=== PATIENT | male | born 1960 | race Caucasian/White ===

== ENCOUNTER 2017-04-04 11:47 | Observation (INO) ==
[2017-04-04] MEDS ORDERED: Nitroglycerin 0.4 MG TAB.SUBL SL ONE (12:02)
[2017-04-04] MEDS ORDERED: Ipratropium/Albuterol Neb 3 ML IH ONE (12:04)
--- NOTE | 2017-04-04 12:10 | Emergency Department Note ---
Disposition Clinical Impression: Stable angina, COPD exacerbation, Leukocytosis Disposition: Admitted As Inpatient Condition: Fair Referrals: Joey Dean, PAC [Primary Care Provider] - Forms: ED Satisfaction Letter Time of Disposition: 13:27 Chest Pain HPI - General Chief Complaint: ED Chest Pain Stated Complaint: CP Time Seen by Provider: 04/04/17 11:59 Source: patient Mode of arrival: ambulatory Limitations: no limitations Vital Signs Reviewed: Yes Nursing Notes Reviewed: Yes - History of Present Illness HPI Narrative: Patient presents to the ED with a chief complaint of chest pain. Patient has a history of coronary artery disease requiring one stent placed a year ago. He is on aspirin and Plavix. Also has a history of hypertension and COPD. Continues to smoke. Reports that he was at his urologists office for follow-up on a cystoscopy when he started developing his anginal type symptoms. Reports that he developed a heavy pressure and his chest with a centralized radiating into his right jaw and right shoulder. This is consistent with his previous angina. Denies any shortness of breath above baseline. He said no fever or recent illnesses. No abdominal pain, nausea, vomiting or diarrhea. No pain or swelling in his legs. No history DVT, PE or malignancy. He took a nitroglycerin and the physician's office, which relieved his pain. This pain started coming back now. Severity scale (1-10): 8 - Related Data Home Medications Medication Instructions Recorded Confirmed Atenolol [Tenormin] 50 mg PO DAILY 11/11/14 12/04/15 Diazepam [Valium] 5 mg PO TID 11/11/14 12/04/15 Fluticasone Propionate Nasal 1 spray NS DAILY 11/11/14 12/04/15 [Flonase] Omeprazole [PriLOSEC] 20 mg PO DAILY 11/11/14 12/04/15 OxyCODONE/APAP 5/325 [Percocet 1 tab PO Q6HR PRN 11/11/14 12/04/15 5/325] Quetiapine Fumarate [Seroquel] 100 mg PO HS 11/11/14 12/04/15 Budesonide/Formoterol 160/4.5 2 puff IH BIDR 12/06/15 12/06/15 [Symbicort 160/4.5] EPINEPHrine [Epipen] 0.3 mg IM ONCE PRN 12/06/15 12/06/15 Pregabalin [Lyrica] 75 mg PO BID 12/06/15 12/06/15 hydrOXYzine pamoate [HydrOXYzine 50 mg PO TID 12/06/15 12/06/15 Pamoate] Previous Rx's Medication Instructions Recorded Albuterol Sulfate [Albuterol 2 puff IH Q4HR 2 Days hfa.aer.ad 11/11/14 Inhaler] Simethicone [Gas-X] 80 mg PO TID #30 tab.chew 12/01/14 Bacitracin OINT [Ak-Tracin] 28 gm TP BID 14 Days tube 03/28/15 Pramoxine HCl [Dermarest Eczema] 56.7 gm TP QID PRN 4 Days lotion 03/28/15 Aspirin 81 mg PO DAILY 30 Days tab.chew 12/06/15 Lisinopril [Zestril] 2.5 mg PO DAILY 30 Days tablet 12/06/15 Lisinopril [Zestril] 5 mg PO DAILY #30 tablet 12/06/15 Nitroglycerin 0.4 mg SL Q5MIN #30 tab.subl 12/06/15 Ticagrelor [Brilinta] 90 mg PO BID #60 tablet 12/06/15 Permethrin CRM [Elimite] 1 appl TP ONCE #1 tube 03/22/16 Montelukast [Singulair] 10 mg PO DAILY #30 tablet 05/04/16 predniSONE [Prednisone] 20 mg PO DAILY #22 tablet 05/04/16 Dicyclomine [Bentyl] 20 mg PO QID PRN #30 capsule 06/07/16 Ondansetron ODT [Zofran ODT] 4 mg SL Q6HR PRN #14 tab.rapdis 07/03/16 Sucralfate [Carafate] 1 gm PO QIDAC #60 tablet 07/03/16 predniSONE [PredniSONE] 60 mg PO DAILY #15 tablet 07/03/16 Azithromycin [Azithromycin 6-Tab 250 mg PO PER PKG DI #6 tab 03/30/17 Pack] Benzonatate [Tessalon] 200 mg PO TID PRN #20 capsule 03/30/17 predniSONE [PredniSONE] 20 mg PO BID #10 tablet 03/30/17 Allergies Allergy/AdvReac Type Severity Reaction Status Date / Time carbamazepine [From Tegretol] Allergy Rash Verified 04/04/17 11:56 codeine Allergy Rash Verified 04/04/17 11:56 doxycycline Allergy Rash Verified 04/04/17 11:56 Penicillins [PCN] Allergy Rash Verified 04/04/17 11:56 Sulfa (Sulfonamide Allergy Rash Verified 04/04/17 11:56 Antibiotics) venom-honey bee Allergy Anaphylaxis Verified 04/04/17 11:56 [bee venom (honey bee)] NSAIDS (Non-Steroidal AdvReac See Verified 04/04/17 11:56 Anti-Inflamma Comments All systems ED: reviewed and negative except as stated. Constitutional: Denies: fever Cardiovascular: Reports: chest pain Respiratory: Denies: dyspnea Gastrointestinal: Denies: vomiting Musculoskeletal: Denies: back pain Chest Pain PMH - Past Medical History Medical history: Reports: asthma, COPD, hyperlipidemia, hypertension, myocardial infarction, other Surgical history: Reports: no surgical history, other Psychiatric history: Reports: anxiety, bipolar, schizophrenia, other - Social History Smoking Status: Current every day smoker Alcohol use: Reports: none Drug use: Reports: none Physical Exam - General Limitations: no limitations General appearance: alert, in no apparent distress - Head Head exam: atraumatic, normocephalic, normal inspection - Eye Eye exam: Present: normal appearance, PERRL, EOMI - ENT ENT exam: normal exam, normal oropharynx, mucous membranes moist - Neck Neck exam: Present: normal inspection, full ROM, trachea midline - Chest Chest inspection: Present: normal inspection, symmetric chest wall rise - Respiratory Respiratory exam: Present: normal lung sounds bilaterally - Cardiovascular Cardiovascular exam: Present: regular rate, normal rhythm, normal heart sounds - Abdominal Exam Abdominal exam: Present: soft, Non-Tender. Absent: tenderness, distention, guarding, rebound, rigidity - Extremities Exam Extremities exam: Present: normal inspection, full ROM. Absent: tenderness, pedal edema - Neurological Exam Neurological exam: Present: alert, oriented X3 - Psychiatric Psychiatric exam: Present: normal affect, normal mood - Skin Skin exam: Present: warm, dry, intact, normal color Course Course Narrative: Patient presenting with chest pain consistent with his previous angina. EKG looks okay, but he did get better with nitroglycerin. Cardiac workup initiated. More nitroglycerin. We will repeat EKG if his symptoms get worse. Further disposition pending, but will likely recommend admission - Reevaluation(s) Reevaluation #1: Patient's workup is back unremarkable. He does have a leukocytosis, but no infectious symptoms. Due to his chest pain history and his heart score of 6. We will admit him hospital for further workup. 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 Williamson was gone and he does not have anyone to follow up with. We will give him aspirin as well. Patient agreeable with plan. Accepted for admission to the hospital. Nitroglycerin did relieve his chest pain. Vital Signs Temperature 98.2 F 04/04/17 11:52 Pulse Rate 56 04/04/17 11:52 Respiratory Rate 18 04/04/17 11:52 Blood Pressure 168/89 04/04/17 11:52 O2 Sat by Pulse Oximetry 96 04/04/17 11:52 Temperature 98.2 F 04/04/17 11:52 Pulse Rate 56 04/04/17 11:52 Respiratory Rate 18 04/04/17 11:52 Blood Pressure 168/89 04/04/17 11:52 O2 Sat by Pulse Oximetry 96 04/04/17 11:52 Oxygen Delivery Oxygen Delivery Room Air Chest Pain - Medical Records Medical records reviewed: Yes I reviewed the patient's medical records. - Lab Data Lab results reviewed: Yes I reviewed the patient's lab results. Result diagrams: 04/04/17 12:31 04/04/17 12:31 Lab Results 04/04/17 04/04/17 04/04/17 Range/Units 12:31 12:31 12:31 WBC 18.7 H (4.3-11.1) K/mcL RBC 4.28 (4.19-5.50) M/mcL Hgb 13.0 (12.9-16.9) g/dL Hct 39.4 (37.5-50.1) % MCV 92.1 (83.0-100.0) fL MCH 30.4 (28.0-33.3) pg MCHC 33.0 (31.6-35.5) g/dL RDW 14.6 H (11.5-14.5) % Plt Count 349 (140-400) K/mcL MPV 9.2 L (9.4-12.4) fL Immature Gran % 1.9 (0-4) % Seg Neutrophils % 73.4 % Lymphocytes % 12.6 % Monocytes % 11.8 % Eosinophils % 0.0 % Basophils % 0.3 % Neutrophils # 13.7 H (1.6-8.9) K/mcL Lymphocytes # 2.4 (0.6-4.6) K/mcL Monocytes # 2.2 H (0.0-1.3) K/mcL Eosinophils # 0.0 (0.0-0.6) K/mcL Basophils # 0.1 (0.0-0.2) K/mcL Sodium 138 (136-145) mEq/L Potassium 4.5 (3.5-5.1) mEq/L Chloride 105 (98-107) mEq/L Carbon Dioxide 31 H (23-29) mEq/L BUN 11 (6-20) mg/dL Creatinine 1.15 (0.70-1.30) mg/dL Est GFR ( Amer) > 60 (> 60) Est GFR (Non-Af Amer) > 60 (> 60) BUN/Creatinine Ratio 10 (6-26) Glucose 103 (70-105) mg/dL Calculated Osmolality 286 (280-300) Calcium 9.0 (8.6-10.3) mg/dL Troponin I < 0.03 (< 0.04) ng/mL - Radiology Data Radiology results reviewed: Yes I reviewed the patient's radiology results. - EKG Data EKG attestation: Yes I reviewed and interpreted this EKG. EKG results narrative: Sinus bradycardia, rate 51, VA interval 144, QRS 97, QTC 401, normal axis, no acute ischemic changes Heart Score - Score History: Highly Suspicious EKG: Non Specific repolarisation Disturbance Age: 45-65 Risk Factors: Equal/Greater than 3 risk factor or history of atherosclerotic disease Troponin: Less than normal limit HEART Score Total: 6
--- NOTE | 2017-04-04 12:12 | Emergency Department Note ---
Disposition Clinical Impression: Stable angina, COPD exacerbation, Leukocytosis Disposition: Admitted As Inpatient Condition: Fair General Adult HPI - General Chief complaint: ED Chest Pain Stated complaint: CP Time Seen by Provider: 04/04/17 11:59 Source: patient Limitations: no limitations Nursing Notes Reviewed: Yes Vital Signs Reviewed: Yes - History of Present Illness Pain Scale: 8 - Related Data Home Medications Medication Instructions Recorded Confirmed Atenolol [Tenormin] 50 mg PO DAILY 11/11/14 04/04/17 Fluticasone Propionate Nasal 1 spray NS DAILY 11/11/14 04/04/17 [Flonase] Quetiapine Fumarate [Seroquel] 100 mg PO HS 11/11/14 04/04/17 EPINEPHrine [Epipen] 0.3 mg IM ONCE PRN 12/06/15 04/04/17 Pregabalin [Lyrica] 75 mg PO BID 12/06/15 04/04/17 Atorvastatin [Lipitor] 40 mg PO HS 04/04/17 04/04/17 Buprenorphine HCl/Naloxone HCl 1 tab SL BID 04/04/17 04/04/17 [Suboxone 8 mg-2 mg Sl Film] Clopidogrel [Plavix] 75 mg PO DAILY 04/04/17 04/04/17 Famotidine [Pepcid] 40 mg PO DAILY 04/04/17 04/04/17 Gabapentin [Neurontin] 300 mg PO TID 04/04/17 04/04/17 Isosorbide MONOnitrate (24 HR) 60 mg PO DAILY 04/04/17 04/04/17 [Imdur] Lisinopril [Zestril] 10 mg PO DAILY 04/04/17 04/04/17 Previous Rx's Medication Instructions Recorded Albuterol Sulfate [Albuterol 2 puff IH Q4HR 2 Days hfa.aer.ad 11/11/14 Inhaler] Aspirin 81 mg PO DAILY 30 Days tab.chew 12/06/15 Nitroglycerin 0.4 mg SL Q5MIN #30 tab.subl 12/06/15 Benzonatate [Tessalon] 200 mg PO TID PRN #20 capsule 03/30/17 Allergies Allergy/AdvReac Type Severity Reaction Status Date / Time carbamazepine [From Tegretol] Allergy Rash Verified 04/04/17 14:48 codeine Allergy Rash Verified 04/04/17 14:48 doxycycline Allergy Rash Verified 04/04/17 14:48 Penicillins [PCN] Allergy Rash Verified 04/04/17 14:48 Sulfa (Sulfonamide Allergy Rash Verified 04/04/17 14:48 Antibiotics) venom-honey bee Allergy Anaphylaxis Verified 04/04/17 14:48 [bee venom (honey bee)] NSAIDS (Non-Steroidal AdvReac See Verified 04/04/17 14:48 Anti-Inflamma Comments Past Medical History - Past Medical History Medical history: Reports: asthma, COPD, hyperlipidemia, hypertension, myocardial infarction, other Surgical history: Reports: no surgical history, other Psychiatric history: Reports: anxiety, bipolar, schizophrenia, other - Social History Smoking Status: Current every day smoker Smokeless Tobacco Status: No Alcohol use: Reports: none Drug use: Reports: none Physical Exam - General Limitations: no limitations General appearance: alert, in no apparent distress Course Vital Signs Temperature 98.2 F 04/04/17 11:52 Pulse Rate 56 04/04/17 11:52 Respiratory Rate 18 04/04/17 11:52 Blood Pressure 168/89 04/04/17 11:52 O2 Sat by Pulse Oximetry 96 04/04/17 11:52 Temperature 98.2 F 04/04/17 11:52 Pulse Rate 56 04/04/17 11:52 Respiratory Rate 18 04/04/17 11:52 Blood Pressure 168/89 04/04/17 11:52 O2 Sat by Pulse Oximetry 96 04/04/17 11:52 Oxygen Delivery Oxygen Delivery Room Air Medical Decision Making - MDM Narrative Medical decision making narrative: This documentation is done with the assistance of Dragon dictation. Despite efforts to ensure accuracy, there may be inaccuracies in flarer or spelling and typographical errors. I examined this patient and my medical decision-making was reviewed with the Resident Physician. I agree with the documented findings, disposition and treatment plan as described except to the extent set forth below. Patient seen and evaluated by Dr. Ramirez and myself, I agree with his evaluation and management plan, I supervised the care of the patient's stay. Patient comes in today with chest pain he was over at another doctor's office and ointment having this intermittently. History of a stent in the past. He takes aspirin and Plavix. Return to work upon himself and getting more comfortable and most likely be admission. He is in agreement with the plan. Chest X-Ray 04/04/17 12:02 IMPRESSION: Stable negative chest. D/ / Marie Rachel MD / Marie Rachel MD Interpreting Provider: Marie Rachel MD 1300 hrs.: Patient denies any chest pain at this time and does not want a nitroglycerin trial. 1324 hrs.: Patient remains pain-free troponins negative. Remaining ahead and bring him in to the hospital. Spoke with hospital he is in agreement with plan as this patient. Chest pain rule out ACS. With history of ACS. - Lab Data Result diagrams: 04/04/17 12:31 04/04/17 12:31 Lab Results 04/04/17 04/04/17 04/04/17 Range/Units 12:31 12:31 12:31 WBC 18.7 H (4.3-11.1) K/mcL RBC 4.28 (4.19-5.50) M/mcL Hgb 13.0 (12.9-16.9) g/dL Hct 39.4 (37.5-50.1) % MCV 92.1 (83.0-100.0) fL MCH 30.4 (28.0-33.3) pg MCHC 33.0 (31.6-35.5) g/dL RDW 14.6 H (11.5-14.5) % Plt Count 349 (140-400) K/mcL MPV 9.2 L (9.4-12.4) fL Immature Gran % 1.9 (0-4) % Seg Neutrophils % 73.4 % Lymphocytes % 12.6 % Monocytes % 11.8 % Eosinophils % 0.0 % Basophils % 0.3 % Neutrophils # 13.7 H (1.6-8.9) K/mcL Lymphocytes # 2.4 (0.6-4.6) K/mcL Monocytes # 2.2 H (0.0-1.3) K/mcL Eosinophils # 0.0 (0.0-0.6) K/mcL Basophils # 0.1 (0.0-0.2) K/mcL Sodium 138 (136-145) mEq/L Potassium 4.5 (3.5-5.1) mEq/L Chloride 105 (98-107) mEq/L Carbon Dioxide 31 H (23-29) mEq/L BUN 11 (6-20) mg/dL Creatinine 1.15 (0.70-1.30) mg/dL Est GFR ( Amer) > 60 (> 60) Est GFR (Non-Af Amer) > 60 (> 60) BUN/Creatinine Ratio 10 (6-26) Glucose 103 (70-105) mg/dL Calculated Osmolality 286 (280-300) Calcium 9.0 (8.6-10.3) mg/dL Troponin I < 0.03 (< 0.04) ng/mL
[2017-04-04 12:47] LABS: Hematocrit 39.4 % (37.5-50.1); Immature Granulocytes % 1.9 % (0-4); Lymphocytes % 12.6 %; Mean Corpuscular Hemoglobin 30.4 pg (28.0-33.3); Mean Corpuscular Volume 92.1 fL (83.0-100.0); Mean Platelet Volume 9.2 fL (9.4-12.4); Monocytes % 11.8 %; Platelet Count 349 K/mcL (140-400); Red Blood Count 4.28 M/mcL (4.19-5.50); Red Cell Distribution Width 14.6 % (11.5-14.5); Segmented Neutrophils % 73.4 %
[2017-04-04 12:48] LABS: Basophils # 0.1 K/mcL (0.0-0.2); Basophils % 0.3 %; Lymphocytes # 2.4 K/mcL (0.6-4.6); Monocytes # 2.2 K/mcL (0.0-1.3); Neutrophils # 13.7 K/mcL (1.6-8.9)
[2017-04-04 12:59] LABS: Carbon Dioxide 31 mEq/L (23-29); Chloride 105 mEq/L (98-107); Potassium 4.5 mEq/L (3.5-5.1); Sodium 138 mEq/L (136-145)
[2017-04-04 13:04] LABS: BUN/Creatinine Ratio 10 (6-26); Blood Urea Nitrogen 11 mg/dL (6-20); Glucose 103 mg/dL (70-105); Osmolality,Calculated 286 (280-300); eGFR For African Americans > 60 (> 60); eGFR For Non-African Americans > 60 (> 60)
[2017-04-04] MEDS ORDERED: Aspirin 325 MG TABLET PO ONE (13:26)
[2017-04-04] MEDS ORDERED: Naloxone 0.4 MG/ML INJ IVP PRN (16:04)
[2017-04-04] MEDS ORDERED: *HR* Morphine 2 MG/ML SYRINGE IVP PRN (16:04)
[2017-04-04] MEDS ORDERED: Mag Hydrox/Al Hydrox/Simeth 30 ML UDC PO PRN (16:04)
[2017-04-04] MEDS ORDERED: *HR* EPINEPHrine 0.3 MG/0.3 ML (PEN) IM PRN (16:07)
[2017-04-04] MEDS ORDERED: Benzonatate 100 MG CAPSULE PO PRN (16:07)
[2017-04-04] MEDS ORDERED: Nitroglycerin 0.4 MG TAB.SUBL SL PRN (16:15)
--- NOTE | 2017-04-04 16:22 | Internal Med History&Physical ---
Date of Encounter: 04/05/17 Time of Encounter: 16:17 Assessment and Plan (1) COPD (chronic obstructive pulmonary disease) with acute bronchitis Status: Acute 56/male Patient is known to have a COPD. Admitted with left-sided chest pain. Patient does complain of occasional cough with the change in of expectoration. Plan: Will treat as a COPD exacerbation. Blood culture 2. Intravenous levofloxacin 750 mg every 24 hours. Solu-Medrol 40 mg every 8 hours. Inhaled DuoNeb every 4 hours. Close monitoring of the respiratory status. Of note: I examined this patient in the emergency department of #22. Plan of care was discussed with the patient at length. (2) Chest pain with moderate risk of acute coronary syndrome Status: Acute Patient does have a typical anginal type of chest pain. KRISTY score: 4. Patient is presently on aspirin/Plavix. We will resume home medication: Beta vandana/lisinopril./Statin We will get echocardiogram. We will cycle troponin. Electrocardiogram shows abnormality then please call cardiology for further evaluation. (3) Hypertension Status: Acute Patient has blood pressure is within acceptable range. We will resume home medication. Qualifiers: Hypertension type: essential hypertension Qualified Code(s): I10 - Essential (primary) hypertension (4) Dyslipidemia Status: Chronic Patient is presently on lipid-lowering medications. (5) DVT prophylaxis Status: Acute SCD Medical decision making: This patient is a moderate to severe risk of worsening in spite of being on appropriate medication due to the underlying complex medical conditions. Internal Medicine - H&P: HPI Chief complaint: chest pain Plans for Post Hospital Care: Home History of present illness: PCP: SHERRI Dean Cardiology: Dr Metcalf PMH: Asthma, COPD, hypertension, hyperlipidemia, previous PCI with stent. History of present medical illness: Patient was complaining of left-sided chest pain which was precordial in nature, radiating to the left arm associated with jaw pain which was getting worse on movement and relieved by rest. Patient has a previous history of myocardial infarction and he underwent stent placement. Patient claims that the nature of pain at this episode is exactly the pain what he had during his previous myocardial infarction. In view of the persistent ongoing chest pain and with the previous history of prior infarction and a stent placement patient decided to come to the hospital for further workup. Patient does complain of occasional cough with the change in color of the expectoration. Patient denies shortness of breath, nausea, vomiting, dizziness or diarrhea. Workup in the emergency room: Patient was evaluated in the emergency room. Basic labs were drawn. Noted that patient has a elevated white blood cell count to 18,000. Chest x-ray did not reveal any pneumonia. Troponin was negative. Reason for admission: Chest pain to rule out ACS. Family history: Noncontributory Past Med Surg Social Fam HX - Past Medical History Medical history: asthma, COPD, hyperlipidemia, hypertension, myocardial infarction, other Psychiatric history: anxiety, bipolar, schizophrenia, other - Past Surgical History Surgical History: no surgical history, other - Social History Smoking Status: Current every day smoker Smokeless Tobacco Status: No Alcohol use: none Drug use: none - Family History Mother Living Status: Still Living Hx Family Cardiac Disorders: Yes (bypass) Hx Family Respiratory Disorders: Yes (copd, asthma) Internal Medicine - H&P: Meds Albuterol Sulfate [Albuterol Inhaler] 2 puff IH Q4HR 2 Days hfa.aer.ad [Rx] Atenolol [Tenormin] 50 mg PO DAILY 11/11/14 [History] Fluticasone Propionate Nasal [Flonase] 1 spray NS DAILY 11/11/14 [History] Quetiapine Fumarate [Seroquel] 100 mg PO HS 11/11/14 [History] Aspirin 81 mg PO DAILY 30 Days tab.chew 12/06/15 [Rx] EPINEPHrine [Epipen] 0.3 mg IM ONCE PRN 12/06/15 [History] Nitroglycerin 0.4 mg SL Q5MIN #30 tab.subl 12/06/15 [Rx] Pregabalin [Lyrica] 75 mg PO BID 12/06/15 [History] Benzonatate [Tessalon] 200 mg PO TID PRN #20 capsule 03/30/17 [Rx] Atorvastatin [Lipitor] 40 mg PO HS 04/04/17 [History] Buprenorphine HCl/Naloxone HCl [Suboxone 8 mg-2 mg Sl Film] 1 tab SL BID [History] Clopidogrel [Plavix] 75 mg PO DAILY 04/04/17 [History] Famotidine [Pepcid] 40 mg PO DAILY 04/04/17 [History] Gabapentin [Neurontin] 300 mg PO TID 04/04/17 [History] Isosorbide MONOnitrate (24 HR) [Imdur] 60 mg PO DAILY 04/04/17 [History] Lisinopril [Zestril] 10 mg PO DAILY 04/04/17 [History] 3 Allergy/AdvReac Type Severity Reaction Status Date / Time carbamazepine [From Tegretol] Allergy Rash Verified 04/04/17 14:48 codeine Allergy Rash Verified 04/04/17 14:48 doxycycline Allergy Rash Verified 04/04/17 14:48 Penicillins [PCN] Allergy Rash Verified 04/04/17 14:48 Sulfa (Sulfonamide Allergy Rash Verified 04/04/17 14:48 Antibiotics) venom-honey bee Allergy Anaphylaxis Verified 04/04/17 14:48 [bee venom (honey bee)] NSAIDS (Non-Steroidal AdvReac See Verified 04/04/17 14:48 Anti-Inflamma Comments All Systems PM: A 10-system review of systems was performed and is negative for pertinent findings except as documented above in the HPI. - Constitutional Constitutional: no chills, no fever(s), no night sweats - EENT Eyes: no change in vision, no discharge, no pain, no photophobia Ears: no ear discharge, no ear pain, no tinnitus Nose, mouth and throat: no dysphagia, no nasal discharge, no neck pain, no sore throat - Cardiovascular Cardiovascular ROS IM: chest pain, diaphoresis, dyspnea, edema, lightheadedness , no palpitations, no syncope - Respiratory Respiratory: no cough, no dyspnea, no wheezing, no excessive phlegm production - Gastrointestinal Gastrointestinal: no abdominal pain, no diarrhea, no hematemesis, no hematochezia, no melena, no nausea, no vomiting - Musculoskeletal Musculoskeletal ROS IM: no numbness, no tingling - Integumentary Integumentary IM: no rash, no unusual bruising - Neurological Neurological ROS: no confusion, no convulsions, no focal weakness, no numbness, no tingling, no tremor(s) - Hematologic/Lymphatic Hematologic/Lymphatic: no easy bruising - Constitutional Vitals: Temp Pulse Resp BP Pulse Ox 98.2 F 54 16 168/94 97 04/04/17 11:52 04/04/17 15:17 04/04/17 15:17 04/04/17 15:17 04/04/17 15:17 General appearance: Present: A&O X 3, pleasant, no acute distress, answers questions appropriately - Head Head exam: Present: atraumatic, normocephalic - Eye Eye exam: Present: PERRL, conjuntiva pink, sclera anicteric Pupils: Present: PERRL - Neck Neck exam general surgery: Present: supple, trachea midline. Absent: lymphadenopathy - Respiratory Respiratory exam: Present: CTAB. Absent: accessory muscle use, rales, rhonchi, wheezes - Cardiovascular Cardiovascular exam: Present: RRR, +S1, +S2. Absent: diastolic murmur, gallop, rubs, systolic murmur - GI/Abdominal GI/Abdominal exam: Present: normal bowel sounds, soft, no peritoneal signs. Absent: distended, tenderness - Extremities Exam Extremities exam: Present: warm, radial pulses palpable and symmetrical. Absent : calf tenderness, cyanotic, pedal edema - Neurological Exam Neurological exam: Present: CN II-XII intact, oriented X3, no focal deficits. Absent: pronater drift, facial droop, speech deficit - Skin Skin exam: Present: dry, intact Internal Med - H&P Results - Labs CBC & Chem 7: 04/05/17 01:29 04/05/17 01:29
[2017-04-04] MEDS: Levofloxacin 750 MG/150 ML 750 MG/150 ML BAG IVPB SCH (16:49)
[2017-04-04] MEDS: Gabapentin 300 MG CAPSULE PO SCH (20:03)
[2017-04-04] MEDS: Pregabalin 75 MG CAPSULE PO SCH (20:03)
[2017-04-04] MEDS: (Buprenorphine Hcl/Naloxone Hcl [Suboxone 8 Mg-2 Mg S) SL SCH (20:04)
[2017-04-04] MEDS: Ipratropium/Albuterol Neb 3 ML IH SCH (20:40)
[2017-04-05] MEDS: MethylPREDNISolone 40 MG/ML VIAL IVP SCH ×2 (00:14→08:31)
[2017-04-05] MEDS: Ipratropium/Albuterol Neb 3 ML IH SCH ×4 (00:21→11:31)
[2017-04-05 01:41] LABS: Basophils % 0.2 %; Eosinophils # 0.1 K/mcL (0.0-0.6); Eosinophils % 0.5 %; Hematocrit 37.6 % (37.5-50.1); Hemoglobin 12.4 g/dL (12.9-16.9); Lymphocytes # 2.5 K/mcL (0.6-4.6); Lymphocytes % 17.7 %; Mean Corpuscular Hemoglobin 30.8 pg (28.0-33.3); Mean Corpuscular Volume 93.5 fL (83.0-100.0); Mean Platelet Volume 9.2 fL (9.4-12.4); Monocytes # 1.4 K/mcL (0.0-1.3); Monocytes % 9.8 %; Neutrophils # 10.2 K/mcL (1.6-8.9); Platelet Count 312 K/mcL (140-400); Red Blood Count 4.02 M/mcL (4.19-5.50); Red Cell Distribution Width 14.5 % (11.5-14.5); Segmented Neutrophils % 70.8 %
[2017-04-05 01:47] LABS: INR 0.9; Prothrombin Time 9.8 Seconds (9.4-12.1)
[2017-04-05 01:50] LABS: Activated Partial Thrombo Time 24.4 Seconds (26.0-36.0)
[2017-04-05 02:00] LABS: Alanine Aminotransferase 9 Units/L (7-52); Albumin 3.2 g/dL (3.5-5.7); Albumin/Globulin Ratio 1.8 (1.1-2.2); Alkaline Phosphatase 63 Units/L (34-104); Aspartate Amino Transferase 9 Units/L (13-39); BUN/Creatinine Ratio 12 (6-26); Bilirubin,Total 0.4 mg/dL (0.3-1.0); Blood Urea Nitrogen 14 mg/dL (6-20); Calcium 8.6 mg/dL (8.6-10.3); Carbon Dioxide 30 mEq/L (23-29); Chloride 109 mEq/L (98-107); Chol/HDL Ratio 2.5 (0-4.9); Cholesterol 97 mg/dL (< 200); Globulin 1.8 g/dL (2.4-3.5); Glucose 100 mg/dL (70-105); HDL Cholesterol 39 mg/dL (40-59); LDL Cholesterol,Calculated 37 mg/dL (0-99); Magnesium 2.7 mg/dL (1.6-2.6); Osmolality,Calculated 289 (280-300); Phosphorous 3.3 mg/dL (2.7-4.5); Potassium 4.4 mEq/L (3.5-5.1); Sodium 139 mEq/L (136-145); Triglycerides 104 mg/dL (< 150); eGFR For African Americans > 60 (> 60); eGFR For Non-African Americans > 60 (> 60)
[2017-04-05] MEDS: Levofloxacin 750 MG/150 ML 750 MG/150 ML BAG IVPB SCH (08:31)
[2017-04-05] MEDS ORDERED: Fluticasone Propionate Nasal 50 MCG/SPRAY BOTTLE NS SCH (09:00)
[2017-04-05] MEDS ORDERED: Famotidine 20 MG TABLET PO SCH (09:00)
[2017-04-05] MEDS ORDERED: Aspirin 81 MG TAB.CHEW PO SCH (09:00)
[2017-04-05] MEDS ORDERED: Isosorbide MONOnitrate (24 HR) 60 MG TAB.ER.24H PO SCH (09:00)
--- NOTE | 2017-04-05 10:39 | Electrocardiograph Report ---
[facility] Test Date: 2017-04-04 Pat Name: Mahesh Nino Department: 104 Room: [facility] Gender: M Face Painter: MAI : 1960 Requested By: Larisa See Order Number: [id number] Reading MD: Connor Shirley MD Measurements Intervals [place] Rate: 51 P: 71 SD: 144 QRS: 36 QRSD: 97 T: 46 QT: 423 QTc: 401 Interpretive Statements SINUS BRADYCARDIA Electronically Signed On 04-05-2017 10:37:51 EST by Connor Shirley MD
[2017-04-05] MEDS: Pregabalin 75 MG CAPSULE PO SCH (11:16)
[2017-04-05] MEDS: Gabapentin 300 MG CAPSULE PO SCH (11:16)
[2017-04-05] MEDS: (Buprenorphine Hcl/Naloxone Hcl [Suboxone 8 Mg-2 Mg S) SL SCH (11:17)
[2017-04-05 11:39] VITALS: BP 124/76
--- NOTE | 2017-04-05 13:58 | Internal Med Progress Note ---
Date of Encounter: 04/05/17 Time of Encounter: 13:55 - Assessment and plan (1) COPD (chronic obstructive pulmonary disease) with acute bronchitis Current Visit: No Status: Acute Assessment and plan: Patient is admitted with the COPD with acute bronchitis. Noted that patient's white cell count is trending down. Patient symptomatically feeling better The frequency of polyphonic wheezes have significantly reduced. We will continue levofloxacin/salmeterol/inhaled bronchodilators for now. Today is the day 2 antibiotics (2) Chest pain with moderate risk of acute coronary syndrome Current Visit: No Status: Acute Assessment and plan: Patient echocardiogram is within normal limits. patient's 3 troponin is negative. We will discuss with cardiology regarding further plan.. (3) Hypertension Current Visit: No Status: Acute Assessment and plan: Blood pressure is within acceptable range. Qualifiers: Hypertension type: essential hypertension Qualified Code(s): I10 - Essential (primary) hypertension (4) Dyslipidemia Current Visit: No Status: Chronic Assessment and plan: LDL 37. (5) DVT prophylaxis Current Visit: No Status: Acute - Subjective Interval history: Patient seen and examined. Chart reviewed. patient is comfortably sitting in a chair. patient denies chest pain, shortness of breath, nausea, abdominal pain, dizziness or diarrhea. - Constitutional Vitals: Temp Pulse Resp BP Pulse Ox 98.2 F 64 16 124/76 96 04/05/17 09:55 04/05/17 09:55 04/05/17 11:31 04/05/17 09:55 04/05/17 11:31 General appearance: Present: A&O X 3, pleasant, no acute distress, answers questions appropriately - Head Head exam: Present: atraumatic, normocephalic - Eye Eye exam: Present: PERRL, conjuntiva pink, sclera anicteric Pupils: Present: PERRL - Neck Neck exam general surgery: Present: supple, trachea midline. Absent: lymphadenopathy - Respiratory Respiratory exam: Present: CTAB. Absent: accessory muscle use, rales, rhonchi, wheezes - Cardiovascular Cardiovascular exam: Present: RRR, +S1, +S2. Absent: diastolic murmur, gallop, rubs, systolic murmur - GI/Abdominal GI/Abdominal exam: Present: normal bowel sounds, soft, no peritoneal signs. Absent: distended, tenderness - Extremities Exam Extremities exam: Present: warm, radial pulses palpable and symmetrical. Absent : calf tenderness, cyanotic, pedal edema - Neurological Exam Neurological exam: Present: CN II-XII intact, oriented X3, no focal deficits. Absent: pronater drift, facial droop, speech deficit - Skin Skin exam: Present: dry, intact Internal Medicine: Result - Labs CBC & Chem 7: 04/05/17 01:29 04/05/17 01:29 Labs: Short CBC 04/05/17 Range/Units 01:29 WBC 14.3 H (4.3-11.1) K/mcL Hgb 12.4 L (12.9-16.9) g/dL Hct 37.6 (37.5-50.1) % Plt Count 312 (140-400) K/mcL Neutrophils # 10.2 H (1.6-8.9) K/mcL BMP 04/05/17 01:29 Sodium 139 Potassium 4.4 Chloride 109 H Carbon Dioxide 30 H BUN 14 Creatinine 1.15 Glucose 100 Calcium 8.6 Cardiac Enzymes 04/04/17 04/05/17 04/05/17 Range/Units 17:49 01:29 08:03 Troponin I < 0.03 0.03 < 0.03 (< 0.04) ng/mL Liver Function 04/05/17 Range/Units 01:29 Total Bilirubin 0.4 (0.3-1.0) mg/dL AST 9 L (13-39) Units/L ALT 9 (7-52) Units/L Alkaline Phosphatase 63 (34-104) Units/L Albumin 3.2 L (3.5-5.7) g/dL - ABG Interpretation ABG results: PT/INR, D-dimer PT 9.8 Seconds (9.4-12.1) 04/05/17 01:28 - Impressions Impressions Echocardiogram 04/04/17 16:13 Impressions: LVEF 65%. Normal right ventricular structure and function. Mild-moderate aortic regurgitation. Mild-moderate mitral regurgitation. Mild-moderate tricuspid regurgitation. Mild pulmonary hypertension. Left Ventricular Wall Motion: Rest Echo Findings All wall segments showed normal motion. Findings: Study Quality * Technically adequate exam. ECG Findings * Normal sinus rhythm. Left Ventricle * LVEF 65%. * Normal LV chamber size, wall thickness and function. * Indeterminate diastolic function. Right Ventricle * Normal right ventricular structure and function. Left Atrium * Normal left atrial size. Right Atrium * Normal right atrial size. Aortic Valve * Trileaflet aortic valve. * No aortic stenosis. * Mild-moderate aortic regurgitation. Mitral Valve * Normal mitral valve structure. * No mitral stenosis. * Mild-moderate mitral regurgitation. Tricuspid Valve * Normal tricuspid valve structure. * Mild-moderate tricuspid regurgitation. * Estimated RA pressure is 3 mmHg. * Estimated RVSP is 43 mmHg. * Mild pulmonary hypertension. Pulmonic Valve * Pulmonic valve is not well visualized. * No pulmonic stenosis. * No pulmonic regurgitation. Pulmonary Artery * Pulmonary artery not well visualized. Aorta * Normally sized aortic root. Pericardium * There is no pericardial effusion present. Interatrial Septum * No evidence of PFO by color Doppler. IVC * Normal IVC dimensions and inspiratory collapse. Consult Discharge Plan - Plan Referrals: Joey Dean, PAC [Primary Care Provider] -
--- NOTE | 2017-04-05 17:11 | Discharge Summary ---
Date of Encounter: 04/05/17 Time of Encounter: 17:10 - Discharge Diagnosis (1) COPD (chronic obstructive pulmonary disease) with acute bronchitis Priority: Primary Status: Acute (2) Chest pain with moderate risk of acute coronary syndrome Priority: Primary Status: Acute (3) Hypertension Priority: Secondary Status: Acute Qualifiers: Hypertension type: essential hypertension Qualified Code(s): I10 - Essential (primary) hypertension (4) Dyslipidemia Priority: Secondary Status: Chronic (5) DVT prophylaxis Priority: Secondary Status: Acute - Discharge Medications Home Medications: Albuterol Sulfate [Albuterol Inhaler] 2 puff IH Q4HR 2 Days hfa.aer.ad [Rx] Atenolol [Tenormin] 50 mg PO DAILY 11/11/14 [History] Fluticasone Propionate Nasal [Flonase] 1 spray NS DAILY 11/11/14 [History] Quetiapine Fumarate [Seroquel] 100 mg PO HS 11/11/14 [History] Aspirin 81 mg PO DAILY 30 Days tab.chew 12/06/15 [Rx] EPINEPHrine [Epipen] 0.3 mg IM ONCE PRN 12/06/15 [History] Nitroglycerin 0.4 mg SL Q5MIN #30 tab.subl 12/06/15 [Rx] Pregabalin [Lyrica] 75 mg PO BID 12/06/15 [History] Benzonatate [Tessalon] 200 mg PO TID PRN #20 capsule 03/30/17 [Rx] Atorvastatin [Lipitor] 40 mg PO HS 04/04/17 [History] Buprenorphine HCl/Naloxone HCl [Suboxone 8 mg-2 mg Sl Film] 1 tab SL BID [History] Clopidogrel [Plavix] 75 mg PO DAILY 04/04/17 [History] Famotidine [Pepcid] 40 mg PO DAILY 04/04/17 [History] Gabapentin [Neurontin] 300 mg PO TID 04/04/17 [History] Isosorbide MONOnitrate (24 HR) [Imdur] 60 mg PO DAILY 04/04/17 [History] Lisinopril [Zestril] 10 mg PO DAILY 04/04/17 [History] Allergies/Adverse Reactions: 3 Allergy/AdvReac Type Severity Reaction Status Date / Time carbamazepine [From Tegretol] Allergy Rash Verified 04/04/17 14:48 codeine Allergy Rash Verified 04/04/17 14:48 doxycycline Allergy Rash Verified 04/04/17 14:48 Penicillins [PCN] Allergy Rash Verified 04/04/17 14:48 Sulfa (Sulfonamide Allergy Rash Verified 04/04/17 14:48 Antibiotics) venom-honey bee Allergy Anaphylaxis Verified 04/04/17 14:48 [bee venom (honey bee)] NSAIDS (Non-Steroidal AdvReac See Verified 04/04/17 14:48 Anti-Inflamma Comments Procedures/tests Complete & Pending: Procedures Performed prior 72 hours Category Date Time Status EV echocardiogram Routine Y 04/04/17 16:13 Completed Date of admission: 04/04/17 13:51 Primary care physician: Joey Dean Discharging clinician: Carson Pike - Patient Status Disposition: Left Against Medical Advice Condition: Fair - Discharge Instructions Follow Up With: Joey Dean, PAC [Primary Care Provider] - Interval History: PCP: SHERRI Dean Cardiology: Dr Metcalf PMH: Asthma, COPD, hypertension, hyperlipidemia, previous PCI with stent. History of present medical illness: Patient was complaining of left-sided chest pain which was precordial in nature, radiating to the left arm associated with jaw pain which was getting worse on movement and relieved by rest. Patient has a previous history of myocardial infarction and he underwent stent placement. Patient claims that the nature of pain at this episode is exactly the pain what he had during his previous myocardial infarction. In view of the persistent ongoing chest pain and with the previous history of prior infarction and a stent placement patient decided to come to the hospital for further workup. Patient does complain of occasional cough with the change in color of the expectoration. Patient denies shortness of breath, nausea, vomiting, dizziness or diarrhea. Workup in the emergency room: Patient was evaluated in the emergency room. Basic labs were drawn. Noted that patient has a elevated white blood cell count to 18,000. Chest x-ray did not reveal any pneumonia. Troponin was negative. Reason for admission: Chest pain to rule out ACS Hospital course: Patient was hospitalized. Patient was also treated for acute exacerbation of COPD. Patient was started on IV antibiotics/intravenous steroids and inhaled bronchodilators. Noted that patient's white blood cell count was trending down. Patient also underwent 3 subsequent troponin. Although 3 troponins were negative. Patient's echocardiogram was within normal limits. I discussed the case with balloon artist and the plan was to get a stress test done. I was informed by the RN that patient eloped/disappeared from the unit. Patient came back to unit after a couple of hours and during all this time his intravenous line( IV access) is intact Patient left hospital. Please see nursing documentation for details - Time Spent with Patient Total time spent providing and/or coordinating discharge services: - Constitutional Vitals: Temp Pulse Resp BP Pulse Ox 98.2 F 64 16 124/76 96 04/05/17 09:55 04/05/17 09:55 04/05/17 11:31 04/05/17 09:55 04/05/17 11:31 General appearance: Present: A&O X 3, pleasant, no acute distress, answers questions appropriately
== END 2017-04-05 14:52 | disposition left against medical advice (07) ==
LOC: 3BNU 11:47 → EMEROO 11:47 → 3NENU 16:00
PROVIDERS: ADMIT Internal Medicine; ATTEND Registered Nurse

== ENCOUNTER 2019-10-01 06:26 | Inpatient (IN) ==
[2019-10-01] MEDS ORDERED: *HR* Heparin 5,000 UNIT/ML VIAL IVP PRN ×2 (06:36)
[2019-10-01] MEDS ORDERED: *HR* Heparin 5,000 UNIT/ML VIAL IVP ONE (06:36)
[2019-10-01] MEDS ORDERED: Aspirin 81 MG TAB.CHEW ONE (06:37)
[2019-10-01] MEDS ORDERED: Aspirin 81 MG TAB.CHEW PO STA (06:37)
[2019-10-01] MEDS ORDERED: *HR* Heparin 5,000 UNIT/ML VIAL ONE (06:37)
[2019-10-01] MEDS ORDERED: *HR* Ticagrelor 90 MG TABLET PO ONE (06:37)
[2019-10-01] MEDS ORDERED: 0.9 % Sodium Chloride 1,000 ML ONE ×2 (06:37→06:43)
[2019-10-01] MEDS ORDERED: *HR* Ticagrelor 90 MG TABLET ONE (06:37)
[2019-10-01] MEDS ORDERED: Heparin 1,000 UNITS/500 mL 500 ML ONE (06:43)
[2019-10-01] MEDS ORDERED: *HR* Heparin 10,000 UNIT/10 ML VIAL ONE (06:43)
[2019-10-01] MEDS ORDERED: ISOVUE-370 200 ML INFUS..BTL ONE ×2 (06:44→06:57)
[2019-10-01] MEDS ORDERED: Nitroglycerin 1,000 MCG/10 ML VIAL IV ONE (06:44)
[2019-10-01] MEDS: Heparin 25,000 UNIT/250 ML D5W 25,000 UNIT/250 ML IV.SOLN IVC SCH (06:53)
[2019-10-01] MEDS ORDERED: *HR* FentaNYL (PF) 100 MCG/2 ML VIAL IVP STA (07:00)
[2019-10-01 07:13] LABS: Basophils # 0.1 K/mcL (0.0-0.2); Basophils % 0.7 %; Eosinophils # 0.3 K/mcL (0.0-0.6); Eosinophils % 2.2 %; Hematocrit 39.1 % (37.5-50.1); Hemoglobin 12.5 g/dL (12.9-16.9); Immature Granulocytes % 1.5 % (0-4); Lymphocytes # 2.5 K/mcL (0.6-4.6); Lymphocytes % 19.6 %; Mean Corpuscular Hemoglobin 30.7 pg (28.0-33.3); Mean Corpuscular Volume 96.1 fL (83.0-100.0); Mean Platelet Volume 8.8 fL (9.4-12.4); Monocytes # 1.6 K/mcL (0.0-1.3); Monocytes % 12.5 %; Neutrophils # 8.2 K/mcL (1.6-8.9); Platelet Count 365 K/mcL (140-400); Red Blood Count 4.07 M/mcL (4.19-5.50); Segmented Neutrophils % 63.5 %; White Blood Count 12.9 K/mcL (4.3-11.1)
[2019-10-01] MEDS ORDERED: *HR* FentaNYL (PF) 100 MCG/2 ML VIAL ONE (07:15)
[2019-10-01] MEDS ORDERED: *HR* Midazolam HCl 2 MG/2 ML VIAL ONE (07:15)
[2019-10-01 07:21] LABS: Prothrombin Time 11.9 Seconds (9.4-12.1)
[2019-10-01 07:39] LABS: BUN/Creatinine Ratio 11 (6-26); Blood Urea Nitrogen 13 mg/dL (6-20); Carbon Dioxide 28 mEq/L (23-29); Chloride 100 mEq/L (98-107); Glucose 112 mg/dL (70-105); Osmolality,Calculated 285 (280-300); Potassium 4.7 mEq/L (3.5-5.1); Sodium 137 mEq/L (136-145); Troponin I < 0.03 ng/mL (< 0.04); eGFR For African Americans > 60 (> 60); eGFR For Non-African Americans > 60 (> 60)
[2019-10-01 07:51] LABS: Heparin anti-factor XA UFH 1.35 IU/mL (0.30-0.70)
[2019-10-01 07:52] LABS: Activated Partial Thrombo Time 224.1 Seconds (26.0-36.0)
[2019-10-01] MEDS ORDERED: carvediloL 6.25 MG TABLET PO SCH (08:00)
[2019-10-01 08:15] LABS: Estimated Average Glucose 143 mg/dl; Hemoglobin A1C 6.6 %
[2019-10-01] MEDS: Aspirin 81 MG TAB.CHEW PO SCH (08:50)
[2019-10-01] MEDS ORDERED: lisinopriL 20 MG TABLET PO SCH (09:00)
[2019-10-01] MEDS: *HR* OxyCODONE Immed Rel 5 MG TABLET PO PRN (10:47)
[2019-10-01] MEDS: Gabapentin 300 MG CAPSULE PO SCH ×3 (10:47→20:40)
[2019-10-01] MEDS ORDERED: Perflutren Lipid Microsphere 1.3 ML in 0.9 % Sodium Chloride 8.7 ML IVP ONE (16:42)
[2019-10-01] MEDS: *HR* Ticagrelor 90 MG TABLET PO SCH (20:42)
[2019-10-01] MEDS: lisinopriL 20 MG TABLET PO SCH (22:30)
[2019-10-01] MEDS: carvediloL 6.25 MG TABLET PO SCH (22:30)
[2019-10-02 06:24] LABS: Basophils # 0.1 K/mcL (0.0-0.2); Basophils % 0.6 %; Eosinophils # 0.1 K/mcL (0.0-0.6); Immature Granulocytes % 1.5 % (0-4); Lymphocytes # 2.4 K/mcL (0.6-4.6); Lymphocytes % 18.7 %; Mean Corpuscular HGB Conc 32.4 g/dL (31.6-35.5); Mean Corpuscular Hemoglobin 30.9 pg (28.0-33.3); Mean Corpuscular Volume 95.4 fL (83.0-100.0); Mean Platelet Volume 8.9 fL (9.4-12.4); Monocytes # 1.6 K/mcL (0.0-1.3); Monocytes % 12.7 %; Neutrophils # 8.2 K/mcL (1.6-8.9); Platelet Count 378 K/mcL (140-400); Red Blood Count 3.88 M/mcL (4.19-5.50); Red Cell Distribution Width 14.3 % (11.5-14.5); Segmented Neutrophils % 65.5 %; White Blood Count 12.6 K/mcL (4.3-11.1)
[2019-10-02 06:44] LABS: BUN/Creatinine Ratio 17 (6-26); Blood Urea Nitrogen 20 mg/dL (6-20); Calcium 9.4 mg/dL (8.6-10.3); Carbon Dioxide 28 mEq/L (23-29); Chloride 102 mEq/L (98-107); Chol/HDL Ratio 3.3 (0-4.9); Cholesterol 110 mg/dL (< 200); Glucose 94 mg/dL (70-105); HDL Cholesterol 33 mg/dL (40-59); LDL Cholesterol,Calculated 55 mg/dL (< 100); Osmolality,Calculated 286 (280-300); Potassium 3.9 mEq/L (3.5-5.1); Sodium 137 mEq/L (136-145); Triglycerides 110 mg/dL (< 150); eGFR For African Americans > 60 (> 60); eGFR For Non-African Americans > 60 (> 60)
[2019-10-02] MEDS: Heparin 25,000 UNIT/250 ML D5W 25,000 UNIT/250 ML IV.SOLN IVC SCH (07:32)
[2019-10-02] MEDS: carvediloL 6.25 MG TABLET PO SCH ×3 (07:33→17:17)
[2019-10-02] MEDS: lisinopriL 20 MG TABLET PO SCH ×2 (07:33→20:45)
[2019-10-02] MEDS: *HR* OxyCODONE Immed Rel 5 MG TABLET PO PRN ×2 (07:57→20:51)
[2019-10-02] MEDS: Gabapentin 300 MG CAPSULE PO SCH ×3 (08:33→20:46)
[2019-10-02] MEDS: Aspirin 81 MG TAB.CHEW PO SCH (08:33)
[2019-10-02] MEDS: *HR* Ticagrelor 90 MG TABLET PO SCH ×2 (08:33→20:46)
[2019-10-02] MEDS ORDERED: QUEtiapine Fumarate 25 MG TABLET PO SCH ×2 (11:45→21:00)
[2019-10-02] MEDS ORDERED: Methadone Oral Concentrate 50 MG/5 ML UDC PO SCH (11:45)
[2019-10-02] MEDS: Methadone Oral Concentrate 50 MG/5 ML UDC PO SCH (12:30)
[2019-10-02] MEDS: *HR* Heparin 5,000 UNIT/ML VIAL SQ SCH (17:18)
[2019-10-02] MEDS ORDERED: *HR* Heparin 5,000 UNIT/ML VIAL SQ SCH (18:00)
[2019-10-02] MEDS ORDERED: Ondansetron ODT 4 MG TAB.RAPDIS SL ONE (23:44)
[2019-10-03 01:35] LABS: Basophils # 0.1 K/mcL (0.0-0.2); Basophils % 0.6 %; Eosinophils # 0.2 K/mcL (0.0-0.6); Eosinophils % 1.9 %; Hematocrit 36.6 % (37.5-50.1); Hemoglobin 12.1 g/dL (12.9-16.9); Immature Granulocytes % 1.4 % (0-4); Lymphocytes # 2.3 K/mcL (0.6-4.6); Lymphocytes % 18.5 %; Mean Corpuscular HGB Conc 33.1 g/dL (31.6-35.5); Mean Corpuscular Hemoglobin 31.6 pg (28.0-33.3); Mean Corpuscular Volume 95.6 fL (83.0-100.0); Mean Platelet Volume 8.8 fL (9.4-12.4); Monocytes # 1.5 K/mcL (0.0-1.3); Monocytes % 12.2 %; Neutrophils # 8.1 K/mcL (1.6-8.9); Platelet Count 341 K/mcL (140-400); Red Blood Count 3.83 M/mcL (4.19-5.50); Red Cell Distribution Width 14.2 % (11.5-14.5); Segmented Neutrophils % 65.4 %; White Blood Count 12.4 K/mcL (4.3-11.1)
[2019-10-03 01:53] LABS: BUN/Creatinine Ratio 17 (6-26); Blood Urea Nitrogen 18 mg/dL (6-20); Calcium 8.6 mg/dL (8.6-10.3); Carbon Dioxide 26 mEq/L (23-29); Chloride 102 mEq/L (98-107); Glucose 101 mg/dL (70-105); Osmolality,Calculated 286 (280-300); Potassium 3.7 mEq/L (3.5-5.1); Sodium 137 mEq/L (136-145); eGFR For African Americans > 60 (> 60); eGFR For Non-African Americans > 60 (> 60)
[2019-10-03] MEDS: *HR* OxyCODONE Immed Rel 5 MG TABLET PO PRN (04:30)
[2019-10-03] MEDS: *HR* Heparin 5,000 UNIT/ML VIAL SQ SCH (05:11)
[2019-10-03] MEDS: Methadone Oral Concentrate 50 MG/5 ML UDC PO SCH (07:40)
[2019-10-03] MEDS: Gabapentin 300 MG CAPSULE PO SCH (07:41)
[2019-10-03] MEDS: lisinopriL 20 MG TABLET PO SCH (07:41)
[2019-10-03] MEDS: *HR* Ticagrelor 90 MG TABLET PO SCH (07:41)
[2019-10-03] MEDS: carvediloL 6.25 MG TABLET PO SCH (07:41)
[2019-10-03] MEDS ORDERED: Aspirin 81 MG TAB.CHEW PO SCH (09:00)
[2019-10-03 11:38] VITALS: BP 110/69
== END 2019-10-03 13:02 | disposition home or self-care (01) | DRG 167 ==
LOC: EMEROOARM 06:26 → ICNU 07:08 → 2NNU 10-02 11:54
PROVIDERS: ADMIT Internal Medicine; ATTEND Internal Medicine

== ENCOUNTER 2020-04-16 05:37 | Observation (INO) ==
[2020-04-16 06:31] LABS: Basophils # 0.1 K/mcL (0.0-0.2); Basophils % 0.5 %; Eosinophils # 0.4 K/mcL (0.0-0.6); Eosinophils % 2.4 %; Hematocrit 38.5 % (37.5-50.1); Hemoglobin 12.5 g/dL (12.9-16.9); Immature Granulocytes % 0.4 % (0-4); Lymphocytes % 12.8 %; Mean Corpuscular HGB Conc 32.5 g/dL (31.6-35.5); Mean Corpuscular Hemoglobin 30.9 pg (28.0-33.3); Mean Corpuscular Volume 95.3 fL (83.0-100.0); Mean Platelet Volume 9.2 fL (9.4-12.4); Monocytes # 1.3 K/mcL (0.0-1.3); Monocytes % 8.2 %; Neutrophils # 11.7 K/mcL (1.6-8.9); Platelet Count 237 K/mcL (140-400); Red Blood Count 4.04 M/mcL (4.19-5.50); Red Cell Distribution Width 14.1 % (11.5-14.5); Segmented Neutrophils % 75.7 %; White Blood Count 15.4 K/mcL (4.3-11.1)
[2020-04-16 06:35] LABS: Prothrombin Time 11.2 Seconds (9.4-12.1)
[2020-04-16 06:52] LABS: BUN/Creatinine Ratio 10 (6-26); Blood Urea Nitrogen 11 mg/dL (6-20); Calcium 9.3 mg/dL (8.6-10.3); Carbon Dioxide 29 mEq/L (23-29); Chloride 102 mEq/L (98-107); Glucose 94 mg/dL (70-105); Osmolality,Calculated 285 (280-300); Potassium 3.8 mEq/L (3.5-5.1); Sodium 138 mEq/L (136-145); eGFR For African Americans > 60 (> 60); eGFR For Non-African Americans > 60 (> 60)
[2020-04-16 06:53] LABS: Troponin I < 0.03 ng/mL (< 0.04)
[2020-04-16 07:07] LABS: Thyroid Stimulating Hormone 2.477 mcIU/mL (0.340-5.600)
[2020-04-16] MEDS ORDERED: Ondansetron 4 MG/2 ML VIAL IVP PRN (08:51)
[2020-04-16] MEDS ORDERED: Naloxone 0.4 MG/ML INJ IVP PRN (08:51)
[2020-04-16] MEDS ORDERED: Acetaminophen 325 MG TABLET PO PRN (08:51)
[2020-04-16 08:59] LABS: Bilirubin,Urine Negative (Negative); Blood,Urine Small (Negative); Clarity,Urine Clear (Clear); Color,Urine Light-Yellow (Yellow); Glucose,Urine (UA) Normal (Normal); Ketones,Urine Negative (Negative); Leukocyte Esterase,Urine Negative (Negative); Mucus,Urine Few per lpf (None-Few); Nitrite,Urine Negative (Negative); Protein,Urine Negative (Neg-Trace); Squamous Epithelial Cell,Urine Few per hpf (None-Few); Urobilinogen,Urine Normal (Normal); WBC,Urine 0-3 per hpf (0-3)
[2020-04-16] MEDS ORDERED: Gabapentin 300 MG CAPSULE PO SCH (09:00)
[2020-04-16] MEDS ORDERED: lisinopriL 20 MG TABLET PO SCH (09:00)
[2020-04-16] MEDS: Aspirin 81 MG TAB.CHEW PO SCH (11:41)
[2020-04-16] MEDS: Famotidine 20 MG TABLET PO SCH (11:42)
[2020-04-16] MEDS: *HR* Ticagrelor 90 MG TABLET PO SCH ×2 (11:45→20:31)
[2020-04-16] MEDS ORDERED: QUEtiapine Fumarate 25 MG TABLET PO SCH (21:00)
[2020-04-17 07:48] LABS: Hematocrit 39.9 % (37.5-50.1); Hemoglobin 13.1 g/dL (12.9-16.9); Mean Corpuscular HGB Conc 32.8 g/dL (31.6-35.5); Mean Corpuscular Volume 94.3 fL (83.0-100.0); Mean Platelet Volume 9.3 fL (9.4-12.4); Platelet Count 242 K/mcL (140-400); Red Blood Count 4.23 M/mcL (4.19-5.50); Red Cell Distribution Width 13.8 % (11.5-14.5)
[2020-04-17 08:17] LABS: BUN/Creatinine Ratio 13 (6-26); Blood Urea Nitrogen 14 mg/dL (6-20); Calcium 9.3 mg/dL (8.6-10.3); Carbon Dioxide 26 mEq/L (23-29); Chloride 104 mEq/L (98-107); Glucose 85 mg/dL (70-105); Magnesium 2.1 mg/dL (1.6-2.6); Osmolality,Calculated 286 (280-300); Phosphorous 2.4 mg/dL (2.7-4.5); Potassium 3.8 mEq/L (3.5-5.1); Sodium 138 mEq/L (136-145); Troponin I 0.03 ng/mL (< 0.04); eGFR For African Americans > 60 (> 60); eGFR For Non-African Americans > 60 (> 60)
[2020-04-17] MEDS ORDERED: Perflutren Lipid Microsphere 1.3 ML in 0.9 % Sodium Chloride 8.7 ML IVP PRN (09:26)
[2020-04-17] MEDS: Methadone Oral Concentrate 50 MG/5 ML UDC PO SCH (09:55)
[2020-04-17] MEDS: *HR* Ticagrelor 90 MG TABLET PO SCH ×2 (09:56→21:30)
[2020-04-17] MEDS: lisinopriL 20 MG TABLET PO SCH (09:56)
[2020-04-17] MEDS: Aspirin 81 MG TAB.CHEW PO SCH (09:56)
[2020-04-17] MEDS: Famotidine 20 MG TABLET PO SCH (09:56)
[2020-04-17 10:51] LABS: Adenovirus Not Detected (Not Detect); Bordetella Pertussis Not Detected (Not Detect); Chlamydophila pneumoniae Not Detected (Not Detect); Coronavirus 229E Not Detected (Not Detect); Coronavirus HKU1 Not Detected (Not Detect); Coronavirus NL63 Not Detected (Not Detect); Coronavirus OC43 Not Detected (Not Detect); Human Metapneumovirus Not Detected (Not Detect); Human Rhinovirus/Enterovirus Not Detected (Not Detect); Influenza A Subtype 2009 H1 Not Detected (Not Detect); Influenza B Not Detected (Not Detect); Mycoplasma pneumoniae Not Detected (Not Detect); Parainfluenza Virus 1 Not Detected (Not Detect); Parainfluenza Virus 2 Not Detected (Not Detect); Parainfluenza Virus 3 Not Detected (Not Detect); Parainfluenza Virus 4 Not Detected (Not Detect); Respiratory Syncytial Virus Not Detected (Not Detect); SARS-CoV-2 Not Detected (Not Detect)
[2020-04-17] MEDS ORDERED: 0.9 % Sodium Chloride 1,000 ML IVC SCH (11:00)
[2020-04-17] MEDS ORDERED: ISOVUE-370 200 ML INFUS..BTL ONE ×2 (11:43→12:49)
[2020-04-17] MEDS ORDERED: Heparin 1,000 UNITS/500 mL 500 ML ONE (11:43)
[2020-04-17] MEDS ORDERED: *HR* Heparin 10,000 UNIT/10 ML VIAL ONE (11:43)
[2020-04-17] MEDS ORDERED: Tirofiban 12.5 MG/250ML 12.5 MG/250 ML BAG ONE (11:43)
[2020-04-17] MEDS ORDERED: 0.9 % Sodium Chloride 2,000 ML ONE (11:43)
[2020-04-17] MEDS ORDERED: Nitroglycerin 1,000 MCG/10 ML VIAL IV ONE (11:44)
[2020-04-17] MEDS ORDERED: *HR* Midazolam HCl 2 MG/2 ML VIAL ONE (11:53)
[2020-04-17] MEDS ORDERED: *HR* FentaNYL (PF) 100 MCG/2 ML VIAL ONE (11:53)
[2020-04-18] MEDS: Gabapentin 300 MG CAPSULE PO SCH ×4 (03:32→21:21)
[2020-04-18 08:05] LABS: Basophils % 0.3 %; Eosinophils # 0.1 K/mcL (0.0-0.6); Eosinophils % 0.7 %; Hematocrit 43.6 % (37.5-50.1); Hemoglobin 14.3 g/dL (12.9-16.9); Immature Granulocytes % 0.3 % (0-4); Lymphocytes # 1.6 K/mcL (0.6-4.6); Lymphocytes % 13.9 %; Mean Corpuscular HGB Conc 32.8 g/dL (31.6-35.5); Mean Corpuscular Hemoglobin 31.1 pg (28.0-33.3); Mean Corpuscular Volume 94.8 fL (83.0-100.0); Mean Platelet Volume 9.4 fL (9.4-12.4); Monocytes # 1.3 K/mcL (0.0-1.3); Neutrophils # 8.7 K/mcL (1.6-8.9); Platelet Count 257 K/mcL (140-400); Red Cell Distribution Width 14.1 % (11.5-14.5); Segmented Neutrophils % 73.8 %; White Blood Count 11.8 K/mcL (4.3-11.1)
[2020-04-18 08:27] LABS: BUN/Creatinine Ratio 13 (6-26); Blood Urea Nitrogen 14 mg/dL (6-20); Calcium 9.7 mg/dL (8.6-10.3); Carbon Dioxide 24 mEq/L (23-29); Chloride 103 mEq/L (98-107); Glucose 73 mg/dL (70-105); Osmolality,Calculated 281 (280-300); Potassium 4.1 mEq/L (3.5-5.1); Sodium 136 mEq/L (136-145); eGFR For African Americans > 60 (> 60); eGFR For Non-African Americans > 60 (> 60)
[2020-04-18] MEDS: Aspirin 81 MG TAB.CHEW PO SCH (09:07)
[2020-04-18] MEDS: Famotidine 20 MG TABLET PO SCH (09:07)
[2020-04-18] MEDS: *HR* Ticagrelor 90 MG TABLET PO SCH ×2 (09:07→21:22)
[2020-04-18] MEDS: lisinopriL 20 MG TABLET PO SCH (09:07)
[2020-04-18] MEDS: Methadone Oral Concentrate 50 MG/5 ML UDC PO SCH (10:26)
[2020-04-19 04:53] LABS: Basophils # 0.1 K/mcL (0.0-0.2); Basophils % 0.4 %; Eosinophils # 0.3 K/mcL (0.0-0.6); Eosinophils % 2.6 %; Hematocrit 39.6 % (37.5-50.1); Immature Granulocytes % 0.4 % (0-4); Lymphocytes # 2.2 K/mcL (0.6-4.6); Lymphocytes % 17.8 %; Mean Corpuscular HGB Conc 32.1 g/dL (31.6-35.5); Mean Corpuscular Hemoglobin 30.5 pg (28.0-33.3); Mean Corpuscular Volume 95.2 fL (83.0-100.0); Mean Platelet Volume 9.4 fL (9.4-12.4); Monocytes # 1.8 K/mcL (0.0-1.3); Monocytes % 14.7 %; Neutrophils # 7.9 K/mcL (1.6-8.9); Platelet Count 221 K/mcL (140-400); Red Blood Count 4.16 M/mcL (4.19-5.50); Red Cell Distribution Width 14.3 % (11.5-14.5); Segmented Neutrophils % 64.1 %; White Blood Count 12.3 K/mcL (4.3-11.1)
[2020-04-19 04:55] LABS: Hemoglobin 12.7 g/dL (12.9-16.9)
[2020-04-19 05:13] LABS: BUN/Creatinine Ratio 12 (6-26); Blood Urea Nitrogen 12 mg/dL (6-20); Calcium 9.1 mg/dL (8.6-10.3); Carbon Dioxide 26 mEq/L (23-29); Chloride 104 mEq/L (98-107); Glucose 94 mg/dL (70-105); Osmolality,Calculated 282 (280-300); Potassium 3.7 mEq/L (3.5-5.1); Sodium 136 mEq/L (136-145); eGFR For African Americans > 60 (> 60); eGFR For Non-African Americans > 60 (> 60)
[2020-04-19] MEDS: Famotidine 20 MG TABLET PO SCH (07:47)
[2020-04-19] MEDS: Aspirin 81 MG TAB.CHEW PO SCH (07:47)
[2020-04-19] MEDS: Gabapentin 300 MG CAPSULE PO SCH (07:47)
[2020-04-19] MEDS: *HR* Ticagrelor 90 MG TABLET PO SCH (07:47)
[2020-04-19] MEDS: lisinopriL 20 MG TABLET PO SCH (07:47)
[2020-04-19] MEDS: Methadone Oral Concentrate 50 MG/5 ML UDC PO SCH (07:47)
[2020-04-19] MEDS ORDERED: carvediloL 6.25 MG TABLET PO SCH (08:30)
[2020-04-19 10:01] VITALS: BP 132/75
== END 2020-04-19 11:35 | disposition home or self-care (01) ==
LOC: EMEROOARM 05:37 → CDU 05:37 → SUATTDRO 09:17 → CDU 11:19 → 3BNU 04-18 10:02
PROVIDERS: ADMIT Internal Medicine; ATTEND Family Medicine